=== PATIENT | male | born 1940 | race Caucasian/White ===

== ENCOUNTER 2016-04-17 11:45 | Emergency (ER) | payer OTHER ==
[2016-04-17 12:07] VITALS: BMI 24.2
--- NOTE | 2016-04-17 12:31 | PDOC ---
History of Present Illness - General History Source: Patient, Family, Old Records Exam Limitations: No Limitations - History of Present Illness Initial Comments: 04/17/16 13:27 The patient is a 75 year old male, with a significant past medical history of HTN, HLD, thyroid disease, chronic back pain, prostate CA (who presents to the emergency department with lower back pain for the past 7 days. He describes his pain as sharp, ranging from mild to moderate, with radiation down his right groin and into his right knee. He notes that movement exacerbates his pain and laying still alleviates his pain. He denies any numbness, tingling, urinary or bowel incontinence. He states that this pain is more severe than his chronic back pain. He also states that he follows up with a chiropractor for his back pain. The patient denies chest pain, shortness of breath, headache and dizziness. Denies fever, chills, nausea, vomit, diarrhea and constipation. Denies dysuria, frequency, urgency and hematuria. Allergies: None Past surgical history: Bypass surgery Social history: Former smoker. No alcohol, or drug use reported PMD - Dr. David Higuera Family - Telly (daughter) [phone] <Aris Camarena - Last Filed: 04/17/16 15:48> <Ricky Weathers - Last Filed: 04/17/16 16:50> - General Chief Complaint: Back Pain Stated Complaint: BACK PAIN (PCP SENT) Time Seen by Provider: 04/17/16 12:30 Past History <Aris Camarena - Last Filed: 04/17/16 15:48> - Past Medical History Cardiac Disorders: Yes HTN: Yes Hypercholesterolemia: Yes Thyroid Disease: Yes - Surgical History Cardiac Surgery: Yes (bipass) - Psycho/Social/Smoking Cessation Hx Suicidal Ideation: No Smoking Status: No Smoking History: Never smoked Have you smoked in the past 12 months: No Number of Cigarettes Smoked Daily: 0 If you are a former smoker, when did you quit?: 1996 Information on smoking cessation initiated: No Hx Alcohol Use: No Drug/Substance Use Hx: No <Ricky Weathers - Last Filed: 04/17/16 16:50> - Past Medical History Allergies/Adverse Reactions: Allergies Allergy/AdvReac Type Severity Reaction Status Date / Time No Known Allergies Allergy Verified 04/17/16 12:01 Home Medications: Ambulatory Orders Atorvastatin Ca [Lipitor] 80 mg PO HS 01/13/12 Clopidogrel Bisulfate [Plavix -] 75 mg PO DAILY 01/13/12 Diltiazem HCl [Diltiazem 24Hr ER] 180 mg PO DAILY 01/13/12 Levothyroxine [Synthroid -] 100 mcg PO DAILY 01/13/12 Losartan Potassium 100 mg PO DAILY 01/13/12 Metoprolol Succinate [Toprol XL -] 50 mg PO DAILY 01/13/12 Tamsulosin HCl 0.4 mg PO DAILY 01/13/12 Oxycodone HCl/Acetaminophen [Percocet 5-325 mg Tablet] 1 tab PO Q6H #15 tablet MDD 3 04/17/16 Review of Systems - Review of Systems Able to Perform ROS?: Yes Comments:: 04/17/16 13:27 CONSTITUTIONAL: No fever, no chills, no fatigue EYES: No visual changes ENT: No ear pain, no sore throat CARDIOVASCULAR: No chest pain, no palpitations RESPIRATORY: No cough, no SOB GI: No abdominal pain, no nausea, no vomiting, no constipation, no diarrhea GENITOURINARY: No dysuria, no frequency, no hematuria MUSKULOSKELETAL: +Lower back pain. No joint pain, no myalgias SKIN: No rash NEURO: No headache <Aris Camarena - Last Filed: 04/17/16 15:48> *Physical Exam - Vital Signs Last Vital Signs Temp Pulse Resp BP Pulse Ox 97.7 F 64 16 139/77 99 04/17/16 12:01 04/17/16 12:01 04/17/16 12:01 04/17/16 12:01 04/17/16 12:01 - Physical Exam Comments: 04/17/16 13:27 CONSTITUTIONAL: Well-appearing; well-nourished; in no apparent distress HEAD: Normocephalic; atraumatic EYES: PERRL; EOM intact ENMT: External appears normal; normal oropharynx NECK: Supple; non-tender; no cervical lymphadenopathy CARD: Normal S1, S2; no murmurs, rubs, or gallops RESP: Normal chest excursion with respiration; breath sounds clear and equal bilaterally; no wheezes, rhonchi, or rales ABD: Soft, non-distended; non-tender; no palpable organomegaly, no palpable hernias EXT: Normal ROM in all four extremities; non-tender to palpation; distal pulses intact SKIN: Warm, dry, no rash NEURO: No focal neurological deficiencies. <Aris Camarena - Last Filed: 04/17/16 15:48> - Vital Signs Last Vital Signs Temp Pulse Resp BP Pulse Ox 97.7 F 64 16 139/77 99 04/17/16 12:01 04/17/16 12:01 04/17/16 12:01 04/17/16 12:01 04/17/16 12:01 <Ricky Weathers - Last Filed: 04/17/16 16:50> ED Treatment Course - LABORATORY CBC & Chemistry Diagram: 04/17/16 14:20 04/17/16 14:20 - RADIOLOGY Radiograph Interpretation: 04/17/16 15:49 Lumbar Sacral spine x-ray Reviewed by: Dr. Craig Dumas Impression: Straightening. Degenrative changes with wedging. Right iliac vascular stent. Clumpy anterior abdomnial calcifications. Previous chest surgery. Prostate bed seed implants. No sign of blastic bone changes. <Aris Camarena - Last Filed: 04/17/16 15:48> - LABORATORY CBC & Chemistry Diagram: 04/17/16 14:20 04/17/16 14:20 <Ricky Weathers - Last Filed: 04/17/16 16:50> Medical Decision Making - Medical Decision Making 04/17/16 16:45 Patient is a well-appearing 75-year-old male with history of prostate cancer ( status post brachytherapy) who presents with atraumatic lower back pain radiating to the right anterior thigh for the past week. Patient denies lower externally weakness or paresthesias, denies bowel/bladder dysfunction. In the ER , patient has reproducible L2/L3 midline tenderness with pain to the right anterior thigh on straight-leg leg agrees and hip extension. There is no evidence of foot drop and fine touch and proprioception are intact bilaterally. CT of abdomen and pelvis reveals no evidence of AAA. Lumbosacral spine x-ray reveals no evidence of fracture dislocation. CT does reveal L2/L3 right paramedial disc herniation which may be responsible for the patient's symptoms. I do not suspect cauda equina or conus medullaris at this time. Patient is pain free after administration of Percocet. Will discharge with pain medication with PMD follow-up. <Ricky Weathers - Last Filed: 04/17/16 16:50> *DC/Admit/Observation/Transfer - Attestations Scribe Attestion: 04/17/16 13:27 Documentation prepared by Aris Camarena, acting as medical i d sales for Ricky Weathers MD. <Aris Camarena - Last Filed: 04/17/16 15:48> - Attestations Physician Attestion: 04/17/16 16:44 The documentation was prepared by the scribe under my direct supervision. I have reviewed the documentation which correctly represents the findings, medical decision-making and critical action taken by me. <Ricky Weathers - Last Filed: 04/17/16 16:50> Diagnosis at time of Disposition: Low back pain Qualifiers: Chronicity: acute Back pain laterality: right Sciatica presence: without sciatica Qualified Code(s): M54.5 - Low back pain - Discharge Dispostion Disposition: HOME Condition at time of disposition: Stable - Referrals Referrals: David Martinez [Primary Care Provider] - - Patient Instructions Printed Discharge Instructions: DI for Low Back Pain
[2016-04-17] MEDS ORDERED: OXYCODONE/APAP 5/325MG COMBO TABLET PO ONE (13:40)
[2016-04-17] MEDS ORDERED: OXYCODONE/APAP 5/325MG COMBO TABLET ONE (14:09)
[2016-04-17 14:46] LABS: EOSINOPHIL 2.6 % (0-4.5); MCH 30.2 pg (25.7-33.7); MEAN PLT VOLUME 7.3 fl (7.5-11.1); NEUTROPHILS 62.1 % (42.8-82.8); PLATELET COUNT 202 K/MM3 (134-434); RDW 14.3 % (11.9-15.9)
[2016-04-17 15:06] LABS: URINE APPEARANCE SLCLOUDY; URINE BILIRUBIN NEGATIVE (NEGATIVE); URINE BLOOD NEGATIVE (NEGATIVE); URINE COLOR DKYELLOW; URINE GLUCOSE (UA) NEGATIVE (NEGATIVE); URINE KETONE NEGATIVE (NEGATIVE); URINE LEUK ESTERASE NEGATIVE (NEGATIVE); URINE NITRITE NEGATIVE (NEGATIVE); URINE PROTEIN NEGATIVE (NEGATIVE); URINE UROBILINOGEN NEGATIVE E.U./dl (0.2-1.0)
[2016-04-17 15:15] LABS: ALK PHOS 65 U/L (45-117); ANION GAP 8 (8-16); BILIRUBIN,TOTAL 0.8 mg/dL (0.2-1.0); CALCIUM 9.9 mg/dL (8.5-10.1); CO2 25 mmol/L (21-32); CREATININE 1.1 mg/dL (0.7-1.3); GLUCOSE,RANDOM 135 mg/dL (74-106); SGPT/ALT 23 U/L (12-78); TOT PROT 7.3 g/dl (6.4-8.2)
[2016-04-17 15:16] LABS: SGOT/AST 27 U/L (15-37)
[2016-04-17 17:27] VITALS: BP 134/69; PULSE 59; TEMP 98
== END 2016-04-17 17:00 | disposition home or self-care (01) ==
LOC: JER 11:45
DX: M54.5 Low back pain (principal); I10 Essential (primary) hypertension; E78.00 Pure hypercholesterolemia, unspecified; E07.9 Disorder of thyroid, unspecified
CPT/HCPCS: 36415; 72100-TC; 74176-TC; 80053; 81003; 85025; 99281-25

== ENCOUNTER 2024-05-30 08:04 | Emergency (ER) | payer OTHER ==
[2024-05-30 08:41] VITALS: BP 138/72; PULSE 69; RESP 19; TEMP 97.9; BMI 27.1
== END 2024-05-30 12:45 | disposition home or self-care (01) ==
LOC: JER 08:04
DX: S80.212A Abrasion, left knee, initial encounter (principal); S60.511A Abrasion of right hand, initial encounter; S60.512A Abrasion of left hand, initial encounter; F03.90 Unspecified dementia, unspecified severity, without behavioral disturbance, psychotic disturbance, mood disturbance, and anxiety; R60.0 Localized edema; M79.604 Pain in right leg; M79.605 Pain in left leg; X58.XXXA Exposure to other specified factors, initial encounter
CPT/HCPCS: 73502-TC-LT-FY; 73562-TC-LT-FY; 74018-TC-FY; 82962; 93970-TC; 99285-25